=== PATIENT | female | born 1995 | race Caucasian/White ===

== ENCOUNTER → 2018-06-09 | Outpatient (CLI) | payer BC ==
--- NOTE | 2018-06-10 06:29 | MR ---
EXAMINATION TYPE: MR brain wo con DATE OF EXAM: 06/09/2018 COMPARISON: CT brain September 04, 2010. HISTORY: Migraines, hx of lt eye injury 2008, currently having pressure in lt eye TECHNIQUE: Multiplanar, multisequence imaging of the brain and brainstem is performed without IV cont rast. FINDINGS: Diffusion weighted images demonstrate no evidence of a recent infarct or other diffusion abnormality. There is no extraaxial fluid collection or significant white matter signal abnormality. The ventricu lar system and cisternal spaces are normal in size and appearance. The brain volume is age appropria te. Midline structures demonstrate normal morphology. The craniocervical junction appears within normal limits. Normal vascular flow voids are present. Near complete opacification of right maxillary sinus favors large mucous retention cyst or polyp. There is smaller inferior eccentric mucosal thickening o r polyp in the left maxillary sinus. Remainder paranasal sinuses are clear. The globes appear intact bilaterally. Nasal septum is deviated to left of midline. IMPRESSION: Large mucous retention cyst or polyps suspected occupying majority of right maxillary sin us.
== END ==
LOC: RADMRIMAIN 15:47
PROVIDERS: ATTEND Ophthalmology
DX: G43.009 Migraine without aura, not intractable, without status migrainosus (principal)
CPT/HCPCS: 70551

== ENCOUNTER → 2018-12-30 | Outpatient (CLI) | payer OTHER ==
--- NOTE | 2018-12-31 08:30 | XR ---
EXAMINATION TYPE: XR chest 2V DATE OF EXAM: 12/30/2018 COMPARISON: 03/08/2013 HISTORY: Chest pain TECHNIQUE: Frontal and lateral views of the chest are obtained. FINDINGS: There is no focal air space opacity. No evidence for pneumothorax. No pleural effusion. The cardiac silhouette size is within normal limits. The osseous structures are grossly intact. IMPRESSION: 1. No acute cardiopulmonary process.
== END | disposition home or self-care (01) ==
LOC: RADXRMAIN 17:58
PROVIDERS: ATTEND Pediatrics
DX: R06.02 Shortness of breath (principal)
CPT/HCPCS: 71046

== ENCOUNTER → 2019-01-19 | Outpatient (CLI) | payer OTHER ==
--- NOTE | 2019-01-26 09:54 | P.PN ---
Progress Note - Text Progress Note Date: 01/26/19 Report on the 48-hour monitor. This is a 23-year-old female being evaluated for cardiac arrhythmias. Baseline EKG showed sinus rhythm with average heart rate of 93. Minimal and 60 and maximum and 66. Occasional PVCs and APCs were noted. No sustained arrhythmias are detected. Final impression: #1. Sinus rhythm and sinus tachycardia #2 occasional APCs. #3 occasional PVCs. #4. No diary
--- NOTE | 2019-01-27 11:21 | HM ---
Report on the 48-hour monitor. This is a 23-year-old female being evaluated for cardiac arrhythmias. Baseline EKG showed sinus rhythm with average heart rate of 93. Minimal and 60 and maximum and 66. Occasional PVCs and APCs were noted. No sustained arrhythmias are detected. Final impression: #1. Sinus rhythm and sinus tachycardia #2 occasional APCs. #3 occasional PVCs. #4. No diary MTDD
== END | disposition home or self-care (01) ==
LOC: RADECHMAIN 11:54
PROVIDERS: ATTEND Pediatrics
DX: R00.2 Palpitations (principal)
CPT/HCPCS: 93225; 93226

== ENCOUNTER 2019-11-14 17:41 | Outpatient (CLI) | payer OTHER ==
[2019-11-14] MEDS: LACTATED RINGERS 1,000 ML IV SCH ×3 (18:32→21:15)
[2019-11-14 18:45] LABS: Basophils % (A) 0 %; Eosinophils % (A) 0 %; HCT 37.7 % (34.0-46.0); HGB 12.3 gm/dL (11.4-16.0); Lymphocytes # (A) 1.5 k/uL (1.0-4.8); Lymphocytes % (A) 10 %; MCH 29.1 pg (25.0-35.0); MCHC 32.6 g/dL (31.0-37.0); MCV 89.2 fL (80.0-100.0); Mean Platelet Volume 7.9; Monocytes # (A) 0.6 k/uL (0-1.0); Monocytes % (A) 4 %; Neutrophils # (A) 12.5 k/uL (1.3-7.7); Neutrophils % (A) 85 %; Platelet Count 266 k/uL (150-450); RBC 4.23 m/uL (3.80-5.40); RDW 13.4 % (11.5-15.5); WBC 14.7 k/uL (3.8-10.6)
[2019-11-14 18:58] LABS: ALT 15 U/L (4-34); AST 22 U/L (14-36); African American GFR (CKD) >90 (>60 ml/min/1.73 sqM); Albumin 3.4 g/dL (3.5-5.0); Alkaline Phosphatase 116 U/L (38-126); Anion Gap 8 mmol/L; Blood Urea Nitrogen 4 mg/dL (7-17); Calcium 9.3 mg/dL (8.4-10.2); Carbon Dioxide 21 mmol/L (22-30); Chloride 106 mmol/L (98-107); Glucose 90 mg/dL (74-99); Non-African American GFR(CKD) >90 (>60 ml/min/1.73 sqM); Potassium 3.8 mmol/L (3.5-5.1); Sodium 135 mmol/L (137-145); Total Bilirubin 0.3 mg/dL (0.2-1.3); Total Protein 6.2 g/dL (6.3-8.2)
[2019-11-14 20:10] LABS: Appearance,Urine Cloudy (Clear); Bacteria,Urine Rare /hpf; Bilirubin,Urine Negative (Negative); Blood,Urine Small (Negative); Color,Urine Light Yellow; Glucose,Urine (UA) Negative (Negative); Ketones,Urine 2+ (Negative); Leukocyte Esterase,Urine Large (Negative); Mucus,Urine Rare /hpf; Nitrite,Urine Positive (Negative); Protein,Urine Trace (Negative); RBC,Urine 5 /hpf (0-5); Specific Gravity,Urine 1.008 (1.001-1.035); Squamous Epithelial Cell,Urine 1 /hpf (0-4); Urobilinogen,Urine <2.0 mg/dL (<2.0); WBC,Urine >182 /hpf (0-5)
[2019-11-14] MEDS ORDERED: ONDANSETRON 4 MG/2 ML VIAL IVP STA (20:27)
[2019-11-15] MEDS: LACTATED RINGERS 1,000 ML IV SCH ×3 (00:55→00:57)
[2019-11-15 01:03] VITALS: BP 118/68; PULSE 106; RESP 16; TEMP 98.2
--- NOTE | 2019-11-15 06:09 | P.MSEPDOC ---
Presenting Problems - Arrival Data Date of Arrival on Unit: 11/14/19 Time of Arrival on Unit: 17:41 Mode of Transport: Ambulatory - Complaint OB-Reason for Admission/Chief Complaint: Pain Comment: right flank pain and foul smelling urine Medical History - Information : 1 Para: 0 Term: 0 : 0 Abortions: Spontaneous or Elective: 0 Number of Living Children: 0 - Gestational Age Gestational Age by KASIA (wks/days): 25 Weeks and 4 Days Review of Systems - Review of Systems Constitutional: No problems Breast: No problems ENT: No problems Cardiovascular: No problems Respiratory: No problems Gastrointestinal: No problems Genitourinary: No problems Musculoskeletal: No problems Neurological: No problems Skin: No problems Vital Signs - Temperature Temperature: 98.2 F Temperature Source: Oral - Pulse Right Brachial Pulse Rate: 106 Pulse Assessment Method: Automatic Cuff - Respirations Respiratory Rate: 16 Oxygen Delivery Method: Room Air O2 Sat by Pulse Oximetry: 98 - Blood Pressure Right Arm Blood Pressure: 118/68 Blood Pressure Mean: 84 Blood Pressure Source: Automatic Cuff Medical Screen Scoring (Pre) - Cervical Exam Dilation: Exam Deferred Effacement: Exam Deferred Membranes: Intact - Uterine Contractions Frequency: N/A Duration: N/A Intensity: N/A - Maternal Vital Signs Maternal Temperature: N/A Signs of Preeclampsia: N/A Maternal Respirations: N/A - Maternal Trauma Maternal Trauma: N/A - Assessment - Baby A Baseline FHR: 140 Heart Rate - NICHD Category: Category I (Normal) = 0 Position: N/A Station: N/A - Total Score - Baby A Total Score - Baby A: 0 - Total Score - Baby B Total Score - Baby B: 0 - Total Score - Baby C Total Score - Baby C: 0 - Level of Risk - Baby A Level of Risk - Baby A: Low (0-5) - Level of Risk - Baby B Level of Risk - Baby B: Low (0-5) - Level of Risk - Baby C Level of Risk - Baby C: Low (0-5) Physician Notification (Pre) - Physician Notified Physician Notified Date: 11/15/19 Physician Notified Time: 20:30 New Order Received: Yes (Ancef IVPB, Zofran, picker/puller script for keflex) - Notification Comment Comment: Meds infused, nausea improved, pt discharged with instructon to picker/puller prescription and take until gone. Disposition - Disposition OB Disposition: Triage, Discharge to home Discharge Date: 11/15/19 Discharge Time: 21:40 I agree with the RN Medical Screening Exam: Yes Risk & Benefit of care provided described in d/c instruction: Yes Diagnosis: URINARY TRACT INFECTION, SITE NOT SPECIFIED (Patient presented with complaints of right flank pain. Patient is afebrile. Laboratory evaluation was negative with the exception of a positive urinalysis consistent with urinary tract infection. Patient given one dose of IV Ancef and some IV fluids. Sent home on oral antibiotics follow up with return if worsening symptoms or fail to improve.)
== END 2019-11-14 21:40 | disposition home or self-care (01) ==
LOC: FBPOP 17:41
PROVIDERS: ATTEND Obstetrics & Gynecology
DX: O23.42 Unspecified infection of urinary tract in pregnancy, second trimester (principal); Z3A.25 25 weeks gestation of pregnancy
CPT/HCPCS: 80053; 85025; 81001; J0690; J2405; 96361; 96365; 96375; 99214

== ENCOUNTER 2020-02-22 17:00 | Inpatient (IN) | payer BC ==
--- NOTE | 2020-02-28 05:59 | P.HPOB ---
History of Present Illness H&P Date: 02/28/20 Chief Complaint: Postdates induction of labor This patient is a pleasant 24-year-old 1 para 0 female estimated date of confinement 02/24/2020 estimated gestational age 40-4/7 weeks who presents to labor and delivery for requested postdates induction of labor. Patient transferred care to [facility] at 14 weeks. care is complicated by a right choroid plexus cyst which did resolve and she's had a normal level III ultrasound. Patient does have a history of a positive group B strep urine culture, negative vaginal culture this . Review of Systems Genitourinary: Reports Menstruation: Reports amenorrhea Past Medical History Past Medical History: No Reported History History of Any Multi-Drug Resistant Organisms: None Reported Additional Past Surgical History / Comment(s): Sinus and Foot surgery Past Anesthesia/Blood Transfusion Reactions: No Reported Reaction Past Psychological History: No Psychological Hx Reported Smoking Status: Never smoker Past Alcohol Use History: None Reported Past Drug Use History: None Reported Medications and Allergies Home Medications Medication Instructions Recorded Confirmed Type Pnv No.95/Ferrous Fum/Folic AC 1 tab PO DAILY 11/14/19 11/14/19 History [ Multivitamin Tablet] Allergies Allergy/AdvReac Type Severity Reaction Status Date / Time codeine AdvReac Rapid Verified 11/14/19 17:48 Heart Rate cyclobenzaprine AdvReac Rapid Verified 11/14/19 17:48 [From Flexeril] Heart Rate Exam - OBG Physical Exam Abdomen: bowel sounds normal, no diffuse tenderness, no bruit present, no guarding noted, no hepatomegaly, no splenomegaly, no mass Vulva: both: normal Vagina: normal moisture, no discharge Cervix: no lesion (Cervix 1-2 cm dilated in the office.), no discharge Uterus: enlarged (Fundal height consistent with gestational age.) Results blood work shows she is O positive, rubella nonimmune, RPR is nonreac tive, hepatitis B is negative, HIV is nonreactive, group B strep was negative, Glucola was normal, most recent ultrasound showed 6 lbs. 9 oz. History of positive group B strep in urine 2013. Assessment and Plan Assessment: This is a pleasant 24-year-old 1 para 0 female 40-4/7 weeks gestation admitted to labor and delivery for postdates induction of labor. Patient is a history of positive group B strep in a urine culture in the past. Plan is antibiotic prophylaxis, Pitocin induction of labor per protocol, and anticipate vaginal delivery. (1) Postmaturity , 40-42 weeks gestation Status: Acute Code(s): O48.0 - POST-TERM SNOMED Code(s): 80087929418081 (2) Encounter for planned induction of labor Status: Acute Code(s): Z34.90 - ENCNTR FOR SUPRVSN OF NORMAL , UNSP, UNSP TRIMESTER SNOMED Code(s): 792668620 (3) Group B streptococcus urinary tract infection affecting Status: Acute Code(s): O23.40 - UNSP INFECTION OF URINARY TRACT IN , UNSP TRIMESTER; B95.1 - STREPTOCOCCUS, GROUP B, CAUSING DISEASES CLASSD ELSR SNOMED Code(s): 646631614
[2020-02-28] MEDS ORDERED: METHYLERGONOVINE 0.2 MG/ML 1 ML AMP IM PRN (06:17)
[2020-02-28] MEDS ORDERED: OXYTOCIN 10 UNIT/ML 1 ML VIAL IM PRN (06:17)
[2020-02-28] MEDS ORDERED: OXYTOCIN 30 UNITS/500 ML NS 30 UNIT in SALINE 1 500ML.BAG IV SCH (06:17)
[2020-02-28] MEDS ORDERED: TERBUTALINE 1 MG/ML VIAL SQ PRN (06:17)
[2020-02-28] MEDS ORDERED: AMPICILLIN 2,000 MG in SODIUM CHLORIDE 0.9% 100 ML IVPB STA (06:17)
[2020-02-28] MEDS ORDERED: CARBOPROST TROMETHAMINE 250 MCG/ML 1 ML AMP IM PRN (06:17)
[2020-02-28] MEDS ORDERED: LIDOCAINE 0.5% (PF) 5 MG/ML (50 ML SDV) SQ PRN (06:17)
[2020-02-28] MEDS: LACTATED RINGERS 1,000 ML IV SCH ×2 (06:22→12:00)
[2020-02-28 06:27] LABS: Basophils % (A) 0 %; Eosinophils # (A) 0.1 k/uL (0-0.7); Eosinophils % (A) 1 %; HCT 41.1 % (34.0-46.0); HGB 13.8 gm/dL (11.4-16.0); Lymphocytes # (A) 2.1 k/uL (1.0-4.8); Lymphocytes % (A) 25 %; MCH 28.9 pg (25.0-35.0); MCHC 33.5 g/dL (31.0-37.0); MCV 86.2 fL (80.0-100.0); Mean Platelet Volume 7.8; Monocytes # (A) 0.6 k/uL (0-1.0); Monocytes % (A) 7 %; Neutrophils # (A) 5.3 k/uL (1.3-7.7); Neutrophils % (A) 64 %; Platelet Count 258 k/uL (150-450); RBC 4.76 m/uL (3.80-5.40); RDW 13.3 % (11.5-15.5); WBC 8.2 k/uL (3.8-10.6)
[2020-02-28] MEDS: AMPICILLIN 1,000 MG in SODIUM CHLORIDE 0.9% 50 ML IVPB SCH ×3 (10:29→18:49)
[2020-02-28] MEDS ORDERED: BUTORPHANOL 1 MG/ML 1 ML VIAL IV PRN (10:39)
[2020-02-28] MEDS ORDERED: fentaNYL (PF) 50 MCG/ML 5 ML AMP ONE (12:08)
[2020-02-28] MEDS ORDERED: SODIUM CHLORIDE 0.9% 100 ML BAG ONE (12:08)
[2020-02-28] MEDS ORDERED: ROPIVACAINE 5MG/ML 20ML VIAL ONE (12:08)
--- NOTE | 2020-02-28 20:30 | P.PROBDLV ---
Vaginal Delivery Note - . Vaginal Delivery Note: Normal vaginal delivery viable female Apgars 9 and 9 delivery time is 2007 hours. Please see dictated H&P for intimate details of this patient's admission. Brief summary this is a pleasant 24-year-old 1 para 0 female 40-4/7 weeks gestation who is admitted to labor and delivery for postdates induction of labor. On admission patient is 1-2 cm dilated and has artificial rupture membranes for clear fluid. Labor is induced with Pitocin per protocol. She does get several doses of Stadol and then an epidural for pain control. Patient is multiple position changes and then after 5 cm does appear to go faster. Patient gets to complete pushes the head to the perineum. Posterior perineum is supported we have controlled delivery of the infant's head over the intact perineum. Infant's position was straight occiput anterior presentation. Mouth and nares are bulb suctioned. There is no evidence of a nuchal cord. With gentle downward traction we then have delivery the anterior and posterior shoulder and rest this 's body. This is a vigorous viable female infant Apgars are 9 and 9 delivery time was 2007 hrs. has spontaneous respirations and good cry and grossly appears normal. Infant is laid on the mother's abdomen. After the umbilical cord was done pulsating is doubly clamped and cut and appears to be trivascular. Placenta spontaneously delivered intact. Estimated blood loss is approximately 200 mL. Inspection of perineum shows no lacerations and no repair. All counts correct 3. There are no complications.
[2020-02-28] MEDS ORDERED: diphenhydrAMINE 50 MG/ML 1 ML VIAL IVP PRN (20:31)
[2020-02-28] MEDS ORDERED: ZOLPIDEM 5 MG TAB PO PRN (20:31)
[2020-02-28] MEDS ORDERED: BENZOCAINE/MENTHOL SPRAY 1 GM/SPRAY AEROSOL TOPICAL PRN (20:31)
[2020-02-28] MEDS ORDERED: diphenhydrAMINE 25 MG CAP PO PRN (20:31)
[2020-02-28] MEDS ORDERED: LANOLIN CREAM 5 GM TUBE TOPICAL PRN (20:31)
[2020-02-28] MEDS ORDERED: MEASLES-MUMPS-RUBELLA VACC/PF 12,500 UNIT/0.5 ML VIAL SQ ONE (20:31)
[2020-02-28] MEDS ORDERED: ACETAMINOPHEN TAB 325 MG TAB PO PRN (20:31)
[2020-02-28] MEDS ORDERED: OXYTOCIN 20 UNITS/1000 ML NS 1,000 ML IV SCH (20:31)
[2020-02-28] MEDS ORDERED: SIMETHICONE 80 MG CHEWABLE PO PRN (20:31)
[2020-02-28] MEDS ORDERED: HYDROCORTISONE 2.5% RECTAL CREAM 30 GM TUBE RECTAL PRN (20:31)
[2020-02-28] MEDS ORDERED: bisacodyL 10 MG SUPP RECTAL PRN (20:31)
[2020-02-28] MEDS: SENNOSIDES-DOCUSATE SODIUM 1 EACH TAB PO SCH (21:05)
[2020-02-29] MEDS: IBUPROFEN 600 MG TAB PO PRN ×3 (06:41→20:03)
--- NOTE | 2020-02-29 06:42 | P.PNOBGVD ---
Subjective - Subjective Patient reports: Reports appetite normal, Reports voiding normally, Reports pain well controlled, Reports ambulating normally : doing well Objective - Latest Vital Signs Latest vital signs: Vital Signs Temp Pulse Resp BP Pulse Ox 02/29/20 04:00 98.2 F 84 16 97/67 02/28/20 22:32 96 16 131/70 02/28/20 22:02 111 H 16 128/81 02/28/20 21:32 97 16 108/84 02/28/20 21:17 97.7 F 91 16 120/77 96 02/28/20 21:02 100 16 113/63 02/28/20 20:47 105 H 16 113/69 02/28/20 20:32 99.3 F 81 16 105/67 02/28/20 20:15 116 H Intake and Output 02/28/20 02/28/20 02/29/20 14:59 22:59 06:59 Output Total 600 200 Balance -600 -200 Output: Estimated Blood Loss 600 200 Other: # Voids 1 3 - Exam Lungs: bilateral: normal Chest: Normal S1, Normal S2 Extremities: Present: normal Abdomen: Present: normal appearance, soft Uterus: Present: normal, firm Assessment and Plan Assessment: day #1. Patient is resting without complaints. Vital signs are stable and she is afebrile. Uterus is firm nontender and she is having normal lochia. My impression is a normal course. Plan is to continue routine care discharge home tomorrow (1) Postmaturity , 40-42 weeks gestation Current Visit: No Status: Acute Code(s): O48.0 - POST-TERM SNOMED Code(s): 46035837604849 (2) Encounter for planned induction of labor Current Visit: No Status: Acute Code(s): Z34.90 - ENCNTR FOR SUPRVSN OF NORMAL , UNSP, UNSP TRIMESTER SNOMED Code(s): 285671091 (3) Group B streptococcus urinary tract infection affecting Current Visit: No Status: Acute Code(s): O23.40 - UNSP INFECTION OF URINARY TRACT IN , UNSP TRIMESTER; B95.1 - STREPTOCOCCUS, GROUP B, CAUSING DISEASES CLASSD [facility]SR SNOMED Code(s): 055114440
[2020-02-29] MEDS: SENNOSIDES-DOCUSATE SODIUM 1 EACH TAB PO SCH ×2 (07:55→20:04)
[2020-02-29] MEDS ORDERED: INFLUENZA VACCINE (6 MOS+) 60 MCG/0.5 ML SYRINGE IM ONE (11:25)
[2020-03-01] MEDS: IBUPROFEN 600 MG TAB PO PRN ×2 (02:10→08:55)
--- NOTE | 2020-03-01 05:44 | P.PNOBGVD ---
Subjective - Subjective Patient reports: Reports appetite normal, Reports voiding normally, Reports pain well controlled, Reports ambulating normally : doing well Objective - Latest Vital Signs Latest vital signs: Vital Signs Temp Pulse Resp BP 03/01/20 00:00 98.2 F 86 16 112/70 02/29/20 16:00 98 F 90 16 02/29/20 08:00 98.0 F 87 16 107/74 Intake and Output 02/29/20 02/29/20 03/01/20 14:59 22:59 06:59 Other: # Voids 1 1 1 - Exam Lungs: bilateral: normal Chest: Normal S1, Normal S2 Extremities: Present: normal Abdomen: Present: normal appearance, soft Uterus: Present: normal, firm Assessment and Plan Assessment: day #2. Patient is resting without complaints wishes to go home. Vital signs are stable and she is afebrile. Uterus is firm nontender and she is having normal lochia. My impression this is a normal course. Plan is to continue routine care discharge home later today (1) Postmaturity , 40-42 weeks gestation Current Visit: No Status: Acute Code(s): O48.0 - POST-TERM SNOMED Code(s): 71463465116495 (2) Encounter for planned induction of labor Current Visit: No Status: Acute Code(s): Z34.90 - ENCNTR FOR SUPRVSN OF NORMAL , UNSP, UNSP TRIMESTER SNOMED Code(s): 289311091 (3) Group B streptococcus urinary tract infection affecting Current Visit: No Status: Acute Code(s): O23.40 - UNSP INFECTION OF URINARY TRACT IN , UNSP TRIMESTER; B95.1 - STREPTOCOCCUS, GROUP B, CAUSING DISEASES CLASSD [facility] SNOMED Code(s): 332425255
--- NOTE | 2020-03-01 05:52 | P.DS ---
Providers Date of admission: 02/28/20 06:04 Expected date of discharge: 03/01/20 Attending physician: Fred Conner Primary care physician: Ra Crystal - Discharge Diagnosis(es) (1) Postmaturity , 40-42 weeks gestation Current Visit: No Status: Acute (2) Encounter for planned induction of labor Current Visit: No Status: Acute (3) Group B streptococcus urinary tract infection affecting Current Visit: No Status: Acute Hospital Course: Please see dictated H&P for intimate details of this patient's admission. In brief summary is a pleasant 24-year-old 1 para 0 female estimated gestat ional age 40-4/7 weeks who presents to labor and delivery for postdates induction of labor. Patient was on have a vaginal delivery viable female . Please see dictated delivery note. day #2 patient's felt be stable for discharge home follow up with me in 6 weeks Procedures: Induction of labor and normal vaginal delivery Patient Condition at Discharge: Good Plan - Discharge Summary New Discharge Prescriptions: New Ibuprofen [Motrin] 600 mg PO Q6HR PRN #40 tab PRN Reason: Mild Pain Or Fever >= 100.5 No Action Pnv No.95/Ferrous Fum/Folic AC [ Multivitamin Tablet] 1 tab PO DAILY Discharge Medication List Pnv No.95/Ferrous Fum/Folic AC [ Multivitamin Tablet] 1 tab PO DAILY 11/14/19 [History] Ibuprofen [Motrin] 600 mg PO Q6HR PRN #40 tab 03/01/20 [Rx] Follow up Appointment(s)/Referral(s): Fred Conner MD [STAFF PHYSICIAN] - 04/10/20 11:30 am Patient Instructions/Handouts: Vaginal Delivery (DC) Activity/Diet/Wound Care/Special Instructions: No intercourse or anything per vagina for 6 weeks. Please call if any fever, chills, excessive vaginal bleeding, and/or abdominal pain Discharge Disposition: HOME SELF-CARE
[2020-03-01] MEDS: SENNOSIDES-DOCUSATE SODIUM 1 EACH TAB PO SCH (08:52)
[2020-03-01 09:24] VITALS: BP 108/63; PULSE 84; RESP 18; TEMP 97.5
== END 2020-03-01 10:25 | disposition home or self-care (01) | DRG 807 ==
LOC: 4FBP 02-28 06:04
PROVIDERS: ADMIT Obstetrics & Gynecology; ATTEND Obstetrics & Gynecology
PROC: 10E0XZZ Delivery of Products of Conception, External Approach (ICD-10-PCS; principal; 2020-02-28)
PROC: 10907ZC Drainage of Amniotic Fluid, Therapeutic from Products of Conception, Via Natural or Artificial Opening (ICD-10-PCS; principal; 2020-02-28)
PROC: 3E0R3BZ Introduction of Anesthetic Agent into Spinal Canal, Percutaneous Approach (ICD-10-PCS; principal; 2020-02-28)
PROC: 3E033VJ Introduction of Other Hormone into Peripheral Vein, Percutaneous Approach (ICD-10-PCS; principal; 2020-02-28)
PROC: 00HU33Z Insertion of Infusion Device into Spinal Canal, Percutaneous Approach (ICD-10-PCS; principal; 2020-02-28)
DX: O48.0 Post-term pregnancy (principal); Z37.0 Single live birth; Z3A.40 40 weeks gestation of pregnancy; Z88.5 Allergy status to narcotic agent; Z88.8 Allergy status to other drugs, medicaments and biological substances
CPT/HCPCS: 85025; 86850; 86900; 86901; 90686; 90707

== ENCOUNTER 2021-09-12 06:01 | Inpatient (IN) | payer BC ==
--- NOTE | 2021-09-11 07:54 | P.HPOB ---
History of Present Illness H&P Date: 09/11/21 Chief Complaint: Requested induction of labor This patient is a pleasant 25-year-old 2 para 1 female estimated date of confinement 09/15/2021 estimated gestational age 39-4/7 weeks presents to labor and delivery for requested induction of labor. Patient's care has been uncomplicated. Patient's uncomfortable has a favorable cervix therefore going to proceed with delivery. Review of Systems Genitourinary: Reports Menstruation: Reports amenorrhea Past Medical History Past Medical History: No Reported History Additional Past Medical History / Comment(s): Patient's had a previous vaginal delivery baby girl. History of Any Multi-Drug Resistant Organisms: None Reported Additional Past Surgical History / Comment(s): Sinus and Foot surgery Past Anesthesia/Blood Transfusion Reactions: No Reported Reaction Past Psychological History: No Psychological Hx Reported Smoking Status: Never smoker Past Alcohol Use History: None Reported Past Drug Use History: None Reported - Past Family History Father Family Medical History: Blood Disorder Additional Family Medical History / Comment(s): factor 5 Medications and Allergies Home Medications Medication Instructions Recorded Confirmed Type Pnv No.95/Ferrous Fum/Folic AC 1 tab PO DAILY 11/14/19 02/28/20 History [ Multivitamin Tablet] Ibuprofen [Motrin] 600 mg PO Q6HR PRN #40 tab 03/01/20 Rx Allergies Allergy/AdvReac Type Severity Reaction Status Date / Time codeine AdvReac Rapid Verified 11/14/19 17:48 Heart Rate cyclobenzaprine AdvReac Rapid Verified 11/14/19 17:48 [From Flexeril] Heart Rate Exam - OBG Physical Exam Abdomen: bowel sounds normal, no diffuse tenderness, no bruit present, no guarding noted, no hepatomegaly, no splenomegaly, no mass Vulva: both: normal Vagina: normal moisture, no discharge Cervix: no lesion (Cervix in the office was 1-2 cm dilated and soft), no discharge Uterus: enlarged (Fundal height 38 cm) Results blood work shows she is O positive, rubella immune, RPR nonreactive, hepatitis B was negative, HIV is nonreactive, Glucola was normal, group B strep was negative however patient has a history in the past of a positive group B strep urine culture. Ultrasounds have shown normal anatomy and most recent ultrasound approximately 10 days ago shows growth at 7 lbs. 0 oz. at the 50th percentile Assessment and Plan Assessment: This is a pleasant 25-year-old 2 para 1 female 39-4/7 weeks gestation admitted to labor and delivery for requested induction of labor. Patient has a history of a positive group B strep urine culture. Plan is antibiotic prophylaxis, Pitocin induction per protocol, and anticipate vaginal delivery. (1) 39 weeks gestation of Status: Acute Code(s): Z3A.39 - 39 WEEKS GESTATION OF SNOMED Code(s): 81008572 (2) Encounter for planned induction of labor Status: Acute Code(s): Z34.90 - ENCNTR FOR SUPRVSN OF NORMAL , UNSP, UNSP TRIMESTER SNOMED Code(s): 878721710 (3) Group B streptococcus urinary tract infection affecting Status: Acute Code(s): O23.40 - UNSP INFECTION OF URINARY TRACT IN , UNSP TRIMESTER; B95.1 - STREPTOCOCCUS, GROUP B, CAUSING DISEASES CLASSD ELSWHR SNOMED Code(s): 651502759
[2021-09-12] MEDS ORDERED: LIDOCAINE 0.5% (PF) 5 MG/ML (50 ML SDV) SQ PRN (06:13)
[2021-09-12] MEDS ORDERED: TERBUTALINE 1 MG/ML VIAL SQ PRN (06:13)
[2021-09-12] MEDS ORDERED: METHYLERGONOVINE 0.2 MG/ML 1 ML AMP IM PRN (06:13)
[2021-09-12] MEDS ORDERED: OXYTOCIN 10 UNIT/ML 1 ML VIAL IM PRN (06:13)
[2021-09-12] MEDS ORDERED: CARBOPROST TROMETHAMINE 250 MCG/ML 1 ML AMP IM PRN (06:13)
[2021-09-12] MEDS ORDERED: OXYTOCIN 30 UNITS/500 ML NS 30 UNIT in SALINE 1 500ML.BAG IV SCH ×2 (06:13→15:05)
[2021-09-12] MEDS ORDERED: AMPICILLIN 2,000 MG in SODIUM CHLORIDE 0.9% 100 ML IVPB STA (06:16)
[2021-09-12] MEDS: LACTATED RINGERS 1,000 ML IV SCH ×2 (06:40→11:31)
[2021-09-12 06:49] LABS: Basophils % (A) 0 %; Eosinophils # (A) 0.1 k/uL (0-0.7); Eosinophils % (A) 1 %; HCT 39.2 % (34.0-46.0); Lymphocytes # (A) 2.1 k/uL (1.0-4.8); Lymphocytes % (A) 31 %; MCH 26.2 pg (25.0-35.0); MCHC 30.8 g/dL (31.0-37.0); MCV 85.3 fL (80.0-100.0); Mean Platelet Volume 8.9; Monocytes # (A) 0.5 k/uL (0-1.0); Monocytes % (A) 8 %; Neutrophils # (A) 3.9 k/uL (1.3-7.7); Neutrophils % (A) 58 %; Platelet Count 251 k/uL (150-450); RBC 4.59 m/uL (3.80-5.40); RDW 13.7 % (11.5-15.5); WBC 6.7 k/uL (3.8-10.6)
[2021-09-12] MEDS ORDERED: SODIUM CHLORIDE 0.9% 100 ML BAG ONE (09:07)
[2021-09-12] MEDS ORDERED: ROPIVACAINE 5MG/ML 20ML VIAL ONE (09:07)
[2021-09-12] MEDS ORDERED: fentaNYL (PF) 50 MCG/ML 5 ML AMP ONE (09:07)
[2021-09-12] MEDS: AMPICILLIN 1,000 MG in SODIUM CHLORIDE 0.9% 50 ML IVPB SCH ×2 (11:31→21:28)
[2021-09-12] MEDS ORDERED: LANOLIN CREAM 5 GM TUBE TOPICAL PRN (15:05)
[2021-09-12] MEDS ORDERED: BENZOCAINE/MENTHOL SPRAY 1 GM/SPRAY AEROSOL TOPICAL PRN (15:05)
[2021-09-12] MEDS ORDERED: SIMETHICONE 80 MG CHEWABLE PO PRN (15:05)
[2021-09-12] MEDS ORDERED: bisacodyL 10 MG SUPP RECTAL PRN (15:05)
[2021-09-12] MEDS ORDERED: diphenhydrAMINE 50 MG/ML 1 ML VIAL IVP PRN (15:05)
[2021-09-12] MEDS ORDERED: HYDROCORTISONE 2.5% RECTAL CREAM 30 GM TUBE RECTAL PRN (15:05)
[2021-09-12] MEDS ORDERED: ZOLPIDEM 5 MG TAB PO PRN (15:05)
[2021-09-12] MEDS ORDERED: diphenhydrAMINE 25 MG CAP PO PRN (15:05)
[2021-09-12] MEDS: IBUPROFEN 600 MG TAB PO PRN (16:38)
--- NOTE | 2021-09-12 18:47 | P.PROBDLV ---
Vaginal Delivery Note - . Vaginal Delivery Note: Normal vaginal delivery viable male infant Apgars 9 and 10 delivery time is 1349 hrs. Please see dictated H&P for intimate details of this patient's admission. In brief summary this is a pleasant 25-year-old 2 para 1 female 39-4/7 weeks gestation who is admitted to labor and delivery for requested induction of labor. On admission patient is 3 cm dilated and has attempted artificial rupture membranes for scant fluid. Labor is induced with Pitocin per protocol. Labor does have spontaneous draining clear fluid. Patient progresses and she gets an epidural for pain control. Of note this does take many attempts however does provide her with good relief. Patient gets to complete pushes for a very short period of time and pushes the head to the perineum. Patient pushes the head over the intact perineum. 's presentation straight occiput anterior presentation. Mouth and nares are bulb suctioned. Is no evidence of a nuchal cord. The infant then spontaneously delivers the shoulders and the rest of this 's body is without any maternal effort. This is a vigorous viable male Apgars are 9 and 10 delivery time was 1349 hrs. After delivery of the the umbilical cord is allowed to quit pulsating is then doubly clamped and cut. The is late on the mother's abdomen. The placenta spontaneously delivered intact inspection of the perineum shows second-degree laceration which repaired with 3-0 Vicryl usual fashion. Somewhat jagged on the left side however this is reapproximated with interrupted sutures as well and in good reapproximation is noted. All counts are correct 3. There are no complications. Infant and mother are stable delivery room.
[2021-09-12] MEDS: SENNOSIDES-DOCUSATE SODIUM 1 EACH TAB PO SCH ×2 (19:50→20:37)
[2021-09-12] MEDS: ACETAMINOPHEN TAB 325 MG TAB PO PRN (20:37)
[2021-09-13] MEDS: IBUPROFEN 600 MG TAB PO PRN ×2 (00:31→07:52)
[2021-09-13] MEDS: ACETAMINOPHEN TAB 325 MG TAB PO PRN (03:02)
--- NOTE | 2021-09-13 06:40 | P.PNOBGVD ---
Subjective - Subjective Patient reports: Reports appetite normal, Reports voiding normally, Reports pain well controlled, Reports ambulating normally : doing well Objective - Latest Vital Signs Latest vital signs: Vital Signs Temp Pulse Resp BP Pulse Ox 09/13/21 04:00 98.5 F 101 H 15 114/82 98 09/13/21 00:00 98.6 F 101 H 16 107/62 98 09/12/21 20:00 98.5 F 103 H 16 114/79 97 09/12/21 16:00 99 16 112/62 09/12/21 15:30 91 16 110/71 09/12/21 15:00 100 16 105/55 09/12/21 14:45 100 16 113/70 09/12/21 14:30 103 H 16 107/55 09/12/21 14:15 107 H 16 106/57 09/12/21 14:00 98.4 F 116 H 16 116/57 Intake and Output 09/12/21 09/12/21 09/13/21 14:59 22:59 06:59 Output Total 500 200 Balance -500 -200 Output: Urine 300 Estimated Blood Loss 200 Output, Quantitative 200 Blood Loss Other: # Voids 2 - Exam Lungs: bilateral: normal Chest: Normal S1, Normal S2 Extremities: Present: normal Abdomen: Present: normal appearance, soft Uterus: Present: normal, firm - Labs Labs: Abnormal Lab Results - Last 24 Hours (Table) 09/12/21 Range/Units 06:30 MCHC 30.8 L (31.0-37.0) g/dL Assessment and Plan Assessment: day #1. Patient is resting without complaints and wishes to go home. Vital signs are stable she is afebrile. Uterus is firm nontender and she is having normal lochia. My impression this is a normal course. Plan is to continue routine care discharge home later today (1) 39 weeks gestation of Current Visit: No Status: Acute Code(s): Z3A.39 - 39 WEEKS GESTATION OF SNOMED Code(s): 19659135 (2) Encounter for planned induction of labor Current Visit: No Status: Acute Code(s): Z34.90 - ENCNTR FOR SUPRVSN OF NORMAL , UNSP, UNSP TRIMESTER SNOMED Code(s): 491413611 (3) Group B streptococcus urinary tract infection affecting Current Visit: No Status: Acute Code(s): O23.40 - UNSP INFECTION OF URINARY TRACT IN , UNSP TRIMESTER; B95.1 - STREPTOCOCCUS, GROUP B, CAUSING DISEASES CLASSD [facility] SNOMED Code(s): 123925464
--- NOTE | 2021-09-13 06:42 | P.DS ---
Providers Date of admission: 09/12/21 06:01 Expected date of discharge: 09/13/21 Attending physician: Fred Conner Primary care physician: Ra Crystal - Discharge Diagnosis(es) (1) 39 weeks gestation of Current Visit: No Status: Acute (2) Encounter for planned induction of labor Current Visit: No Status: Acute (3) Group B streptococcus urinary tract infection affecting Current Visit: No Status: Acute Hospital Course: Please see dictated H&P for intimate details of this patient's admission. Brief summary is a pleasant 25-year-old 2 para 1 female 39-4/7 weeks who presents to labor and delivery for elective induction of labor. Patient is induction of labor quickly goes on to have a vaginal delivery viable male . Please see dictated delivery note. day #1 patient's felt be stable for discharge home follow up with me in 6 weeks. Procedures: Induction of labor and normal vaginal delivery Patient Condition at Discharge: Good Plan - Discharge Summary New Discharge Prescriptions: New Ibuprofen [Motrin] 600 mg PO Q6HR PRN #30 tab PRN Reason: Mild Pain (Scale 1 To 3) No Action Pnv No.95/Ferrous Fum/Folic AC [ Multivitamin Tablet] 1 tab PO DAILY Discharge Medication List Pnv No.95/Ferrous Fum/Folic AC [ Multivitamin Tablet] 1 tab PO DAILY 11/14/19 [History] Ibuprofen [Motrin] 600 mg PO Q6HR PRN #30 tab 09/13/21 [Rx] Follow up Appointment(s)/Referral(s): Fred Conner MD [STAFF PHYSICIAN] - 10/22/21 3:15 pm Patient Instructions/Handouts: Vaginal Delivery (DC) Activity/Diet/Wound Care/Special Instructions: No intercourse or anything per vagina for 6 weeks. Please call if any fever, chills, excessive vaginal bleeding, and/or abdominal pain Discharge Disposition: HOME SELF-CARE
[2021-09-13 06:45] LABS: Basophils % (A) 0 %; Eosinophils # (A) 0.1 k/uL (0-0.7); Eosinophils % (A) 1 %; HCT 35.9 % (34.0-46.0); HGB 11.3 gm/dL (11.4-16.0); Lymphocytes % (A) 23 %; MCH 27.1 pg (25.0-35.0); MCHC 31.5 g/dL (31.0-37.0); MCV 86.1 fL (80.0-100.0); Monocytes # (A) 0.5 k/uL (0-1.0); Monocytes % (A) 6 %; Neutrophils % (A) 69 %; Platelet Count 205 k/uL (150-450); RBC 4.17 m/uL (3.80-5.40); RDW 13.8 % (11.5-15.5); WBC 8.7 k/uL (3.8-10.6)
[2021-09-13] MEDS: SENNOSIDES-DOCUSATE SODIUM 1 EACH TAB PO SCH (07:52)
[2021-09-13 11:52] VITALS: BP 130/85; PULSE 94; RESP 18; TEMP 98.3
== END 2021-09-13 15:00 | disposition home or self-care (01) | DRG 806 ==
LOC: 4FBP 06:01
PROVIDERS: ADMIT Obstetrics & Gynecology; ATTEND Obstetrics & Gynecology
PROC: 10E0XZZ Delivery of Products of Conception, External Approach (ICD-10-PCS; principal; 2021-09-12)
PROC: 0KQM0ZZ Repair Perineum Muscle, Open Approach (ICD-10-PCS; 2021-09-12)
PROC: 3E033VJ Introduction of Other Hormone into Peripheral Vein, Percutaneous Approach (ICD-10-PCS; 2021-09-12)
DX: O98.82 Other maternal infectious and parasitic diseases complicating childbirth (principal); O23.43 Unspecified infection of urinary tract in pregnancy, third trimester; Z37.0 Single live birth; B95.1 Streptococcus, group B, as the cause of diseases classified elsewhere; O70.1 Second degree perineal laceration during delivery; Z3A.39 39 weeks gestation of pregnancy
CPT/HCPCS: 85025; 86850; 86900; 86901

== ENCOUNTER 2023-04-07 13:57 | Outpatient (CLI) | payer BC ==
--- NOTE | 2023-04-07 16:08 | P.MSEPDOC ---
Presenting Problems - Arrival Data Date of Arrival on Unit: 04/07/23 Time of Arrival on Unit: 13:57 Mode of Transport: Ambulatory - Complaint OB-Reason for Admission/Chief Complaint: Pain Comment: Pt reports to triage c/o abdominal pain across lower abdomen, worse on left side. Pt states she has been coughing for the last 8 days and has increasing sinus pressure and pain as well as yellow nasal discharge and yellow mucus when coughing. Medical History - Information : 3 Para: 2 Number of Living Children: 2 - Gestational Age Gestational Age by KASIA (wks/days): 22 Weeks and 3 Days Review of Systems - Review of Systems Constitutional: No problems Breast: No problems ENT: Cough, Nasal congestion Cardiovascular: No problems Respiratory: No problems Gastrointestinal: No problems Genitourinary: No problems Musculoskeletal: No problems Neurological: No problems Skin: No problems Vital Signs - Temperature Temperature: 97.9 F Temperature Source: Temporal Artery Scan - Pulse Right Sitting Brachial Pulse Rate: 112 Pulse Assessment Method: Automatic Cuff - Respirations Respiratory Rate: 18 Oxygen Delivery Method: Room Air O2 Sat by Pulse Oximetry: 97 - Blood Pressure Right Arm Sitting Blood Pressure: 121/73 Blood Pressure Mean: 89 Blood Pressure Source: Automatic Cuff Medical Screen Scoring - Assessment - Baby A Baseline FHR: 140 Physician Notification - Physician Notified Physician Notified Date: 04/07/23 Physician Notified Time: 14:25 Physician: Shaylee John Order Received: Yes - Notification Comment Comment: Spk c\Dr. John, advsd pt of Dr. Henriquez, arrives to triage c/o lower ab pain, tender on L side, above hip bone. FHT dopplered, 140s, ab soft and nontender in all areas except a 4cm spot on left side. Pt c\sinus pressure/pain, yellow mucusy nasal discharge and productive cough. Order rec'd for 4plex swab. 1550: 4plex negative; Pt discharged home c\instructions on safe OTC cough/cold medicine. To follow up as scheduled. Maternal Triage Index - Non-Urgent/Priority 4 Non-Urgent Priority 4: Yes Criteria Met for Priority 4: 22wk ab pain Disposition - Disposition OB Disposition: Discharge to home, Written follow up instructions reviewed Discharge Date: 04/07/23 Discharge Time: 16:00 I agree with the RN Medical Screening Exam: Yes Case reviewed; plan agreed upon as documented in EMR&OBIX.: Yes Diagnosis: RELATED CONDITIONS, UNSPECIFIED, SECOND TRIMESTER
[2023-04-07 16:11] VITALS: BP 121/73; PULSE 112; RESP 18; TEMP 97.9
== END 2023-04-07 15:50 | disposition home or self-care (01) ==
LOC: FBPOP 13:57
PROVIDERS: ATTEND Obstetrics & Gynecology
DX: O26.92 Pregnancy related conditions, unspecified, second trimester (principal); Z3A.22 22 weeks gestation of pregnancy; Z88.5 Allergy status to narcotic agent; Z88.2 Allergy status to sulfonamides
CPT/HCPCS: 87636; 99213

== ENCOUNTER 2023-06-30 15:48 | Outpatient (CLI) | payer BC ==
[2023-06-30 17:08] VITALS: BP 121/75; PULSE 116; RESP 16; TEMP 96.8
--- NOTE | 2023-08-11 08:07 | P.MSEPDOC ---
Presenting Problems - Arrival Data Date of Arrival on Unit: 06/30/23 Time of Arrival on Unit: 15:48 Mode of Transport: Ambulatory - Complaint OB-Reason for Admission/Chief Complaint: Pain, Dizziness Comment: headache and dizziness for the last week Medical History - Information : 3 Para: 2 Term: 2 : 0 Abortions: Spontaneous or Elective: 0 Number of Living Children: 2 - Gestational Age Gestational Age by KASIA (wks/days): 34 Weeks and 3 Days Review of Systems - Review of Systems Constitutional: No problems Breast: No problems ENT: No problems Cardiovascular: No problems Respiratory: No problems Gastrointestinal: No problems Genitourinary: No problems Musculoskeletal: No problems Neurological: No problems Skin: No problems Vital Signs - Temperature Temperature: 96.8 F Temperature Source: Temporal Artery Scan - Pulse Right Sitting Pulse Rate: 116 Pulse Assessment Method: Automatic Cuff - Respirations Respiratory Rate: 16 Oxygen Delivery Method: Room Air - Blood Pressure Right Arm Blood Pressure: 121/75 Blood Pressure Mean: 90 Blood Pressure Source: Automatic Cuff Medical Screen Scoring - Assessment - Baby A Baseline FHR: 125 Heart Rate - NICHD Category: Category I (Normal) NST: Reactive Physician Notification - Physician Notified Physician Notified Date: 06/30/23 Physician Notified Time: 16:32 Physician: Niurka Hernandez New Order Received: Yes (d/c home) Maternal Triage Index - Non-Urgent/Priority 4 Non-Urgent Priority 4: Yes Criteria Met for Priority 4: reactive nst, vitals wnl Disposition - Disposition OB Disposition: Discharge to home Discharge Date: 06/30/23 Discharge Time: 16:41 I agree with the RN Medical Screening Exam: Yes Case reviewed; plan agreed upon as documented in EMR&OBIX.: Yes Diagnosis: HEADACHE WITH ORTHOSTATIC COMPONENT, NEC
== END 2023-06-30 16:41 | disposition home or self-care (01) ==
LOC: FBPOP 15:48
PROVIDERS: ATTEND Obstetrics & Gynecology
DX: O26.893 Other specified pregnancy related conditions, third trimester (principal); R51.0 Headache with orthostatic component, not elsewhere classified; R42 Dizziness and giddiness; Z3A.34 34 weeks gestation of pregnancy; Z88.5 Allergy status to narcotic agent; Z88.8 Allergy status to other drugs, medicaments and biological substances
CPT/HCPCS: 59025; 99213

== ENCOUNTER → 2023-07-01 | Outpatient (CLI) | payer BC ==
--- NOTE | 2023-07-01 11:22 | US ---
EXAMINATION TYPE: US OB >= 14 wk fetus DATE OF EXAM: 07/01/2023 COMPARISON: None CLINICAL INDICATION: Female, 27 years old with history of O36.63X0 MATERNAL CARE FOR EXCESS NNAMDI WTH, TH; LGA TECHNIQUE: Transabdominal (TA) GESTATIONAL AGE / DATING Physician Established: (34 weeks/4 days) EDC: 08/08/23 Dates by LMP: LMP unknown Dates by First Scan: No previous this is first scan Dates by Current Scan: (35 weeks/3 days) EDC: 08/02/23 SURVEY IUP: Single PLACENTA: Fundal PREVIA: No Previa KELTON: 10.2 cm Normal CERVICAL LENGTH (transabdominal: norm > 3.0cm): 4.2 cm BIOMETRY PRESENTATION: Breech LIE: Longitudinal BPD: 8.8 cm 35 weeks / 4 days HC: 32.3 cm 36 weeks / 4 days AC: 31.6 cm 35 weeks / 4 days FL: 6.6 cm 33 weeks / 6 days ESTIMATED WEIGHT IN GRAMS: 2612 grams ESTIMATED WEIGHT IN LBS/OZ: 5 lbs. 12 oz. WEIGHT PERCENTAGE BASED ON ESTABLISHED DATES: 63% HC/AC: 1.02 Normal FL/AC: 21% Normal HEART RATE: 147 bpm RHYTHM: Normal IMPRESSION: Single live intrauterine gestation with ultrasound age 35 weeks 3 days.
== END | disposition home or self-care (01) ==
LOC: RADUSWWP 10:06
PROVIDERS: ATTEND Obstetrics & Gynecology
DX: O36.63X0 Maternal care for excessive fetal growth, third trimester, not applicable or unspecified (principal); O32.1XX0 Maternal care for breech presentation, not applicable or unspecified; Z3A.35 35 weeks gestation of pregnancy
CPT/HCPCS: 76805

== ENCOUNTER 2023-07-06 13:53 | Outpatient (CLI) | payer BC ==
[2023-07-06 17:58] VITALS: BP 128/79; PULSE 112; RESP 16; TEMP 97.4
--- NOTE | 2023-07-08 20:53 | P.MSEPDOC ---
Presenting Problems - Arrival Data Date of Arrival on Unit: 07/06/23 Time of Arrival on Unit: 14:10 Mode of Transport: Ambulatory - Complaint OB-Reason for Admission/Chief Complaint: Headache, Other Comment: dizziness. told to come to triage per pcp, iron level 6. Medical History - Information : 3 Para: 2 Term: 2 : 0 Abortions: Spontaneous or Elective: 0 Number of Living Children: 0 - Gestational Age Gestational Age by KASIA (wks/days): 35 Weeks and 1 Days - History Comment: was in last week for same symtoms. told to see pcp . pt states pcp did ekg, lab work flu and covid testing all ok. told to come here today. Review of Systems - Review of Systems Constitutional: No problems Breast: No problems ENT: No problems Cardiovascular: No problems Respiratory: No problems Gastrointestinal: No problems Genitourinary: No problems Musculoskeletal: No problems Neurological: No problems Skin: No problems Vital Signs - Temperature Temperature: 97.4 F Temperature Source: Temporal Artery Scan - Pulse Right Radial Pulse Rate: 112 Pulse Assessment Method: Automatic Cuff - Respirations Respiratory Rate: 16 Oxygen Delivery Method: Room Air O2 Sat by Pulse Oximetry: 98 - Blood Pressure Right Arm Blood Pressure: 128/79 Blood Pressure Mean: 95 Blood Pressure Source: Automatic Cuff Medical Screen Scoring - Cervical Exam Membranes: Intact - Uterine Contractions Intensity: Absent Resting: Soft to palpation - Assessment - Baby A Baseline FHR: 120 Heart Rate - NICHD Category: Category I (Normal) NST: Reactive Physician Notification - Physician Notified Physician Notified Date: 07/06/23 Physician Notified Time: 14:55 Physician: Malaika Marino Order Received: Yes (home with instructions and keep noxt weeks appt.. return if concerns or pro) Maternal Triage Index - Scheduled/Requesting Priority 5 Scheduled/Requesting Priority 5: Yes Criteria Met for Priority 5: from pcp office hemogloben 12.4. iron 6.0. starting hemo-12.7 beginning of preg. Disposition - Disposition OB Disposition: Physician follow up in office, Discharge to home, Written follow up instructions reviewed Discharge Date: 07/06/23 Discharge Time: 15:00 I agree with the RN Medical Screening Exam: Yes Case reviewed; plan agreed upon as documented in EMR&OBIX.: Yes Diagnosis: Dizziness in
== END 2023-07-06 15:00 | disposition home or self-care (01) ==
LOC: FBPOP 13:53
PROVIDERS: ATTEND Obstetrics & Gynecology
DX: O26.893 Other specified pregnancy related conditions, third trimester (principal); R51.9 Headache, unspecified; R42 Dizziness and giddiness; Z3A.35 35 weeks gestation of pregnancy; Z88.5 Allergy status to narcotic agent; Z88.1 Allergy status to other antibiotic agents
CPT/HCPCS: 59025; 99213

== ENCOUNTER 2023-08-11 03:17 | Inpatient (IN) | payer BC ==
[2023-08-11] MEDS ORDERED: miSOPROStoL 200 MCG TAB PO PRN (04:10)
[2023-08-11] MEDS ORDERED: LIDOCAINE 0.5% (PF) 5 MG/ML (50 ML SDV) SQ PRN (04:10)
[2023-08-11] MEDS ORDERED: TRANEXAMIC 1,000 MG/100ML-NACL 1,000 MG in EMPTY BAG 1 BAG IV PRN (04:10)
[2023-08-11] MEDS ORDERED: CARBOPROST TROMETHAMINE 250 MCG/ML 1 ML AMP IM PRN (04:10)
[2023-08-11] MEDS ORDERED: OXYTOCIN 10 UNIT/ML 1 ML VIAL IM PRN (04:10)
[2023-08-11] MEDS ORDERED: METHYLERGONOVINE 0.2 MG/ML 1 ML AMP IM PRN (04:10)
[2023-08-11] MEDS ORDERED: TERBUTALINE 1 MG/ML VIAL SQ PRN (04:10)
[2023-08-11 04:27] LABS: Basophils % (A) 0 %; Eosinophils % (A) 1 %; HCT 38.8 % (34.0-46.0); HGB 12.6 gm/dL (11.4-16.0); Lymphocytes # (A) 1.6 k/uL (1.0-4.8); Lymphocytes % (A) 22 %; MCH 28.2 pg (25.0-35.0); MCHC 32.4 g/dL (31.0-37.0); Mean Platelet Volume 9.4; Monocytes # (A) 0.4 k/uL (0-1.0); Monocytes % (A) 5 %; Neutrophils # (A) 5.2 k/uL (1.3-7.7); Neutrophils % (A) 71 %; Platelet Count 212 k/uL (150-450); RBC 4.46 m/uL (3.80-5.40); RDW 13.8 % (11.5-15.5); WBC 7.3 k/uL (3.8-10.6)
[2023-08-11] MEDS: LACTATED RINGERS 1,000 ML IV SCH (04:30)
[2023-08-11] MEDS: CITRIC ACID-SODIUM CITRATE 15 ML CUP PO ONE (04:50)
[2023-08-11] MEDS ORDERED: SODIUM CHLORIDE 0.9% 250 ML BAG ONE (05:02)
[2023-08-11] MEDS ORDERED: fentaNYL (PF) 50 MCG/ML 5 ML AMP ONE (05:02)
[2023-08-11] MEDS ORDERED: ROPIVACAINE 5 MG/ML 30 ML VIAL ONE (05:02)
--- NOTE | 2023-08-11 08:10 | P.HPOB ---
History of Present Illness H&P Date: 08/11/23 Chief Complaint: labor 27-year-old presents at 40 weeks and 3 days complaining of contractions. She is aydee every 2-4 minutes. heart tones 140 with moderate variability and reactive. Her cervix is 6-7 cm dilated, 80% effaced, -2 station. Review of Systems All systems: negative Constitutional: Denies chills, Denies fever Eyes: denies blurred vision, denies pain Ears, nose, mouth and throat: Denies headache, Denies sore throat Cardiovascular: Denies chest pain, Denies shortness of breath Respiratory: Denies cough Gastrointestinal: Denies abdominal pain, Denies diarrhea, Denies nausea, Denies vomiting Genitourinary: Denies dysuria, Denies hematuria Musculoskeletal: Denies myalgias Integumentary: Denies pruritus, Denies rash Neurological: Denies numbness, Denies weakness Psychiatric: Denies anxiety, Denies depression Endocrine: Denies fatigue, Denies weight change Past Medical History Past Medical History: No Reported History Additional Past Medical History / Comment(s): Patient's had a previous vaginal delivery baby girl. History of Any Multi-Drug Resistant Organisms: None Reported Past Surgical History: No Surgical Hx Reported Additional Past Surgical History / Comment(s): Sinus and Foot surgery Past Anesthesia/Blood Transfusion Reactions: No Reported Reaction Past Psychological History: No Psychological Hx Reported Smoking Status: Never smoker Past Alcohol Use History: None Reported Past Drug Use History: None Reported - Past Family History Father Family Medical History: Blood Disorder Additional Family Medical History / Comment(s): factor 5 Medications and Allergies Home Medications Medication Instructions Recorded Confirmed Type Pnv No.95/Ferrous Fum/Folic AC 1 tab PO DAILY 11/14/19 08/11/23 History [ Multivitamin Tablet] Allergies Allergy/AdvReac Type Severity Reaction Status Date / Time codeine AdvReac Rapid Verified 08/11/23 04:10 Heart Rate cyclobenzaprine AdvReac Rapid Verified 08/11/23 04:10 [From Flexeril] Heart Rate Exam Osteopathic Statement: *. No significant issues noted on an osteopathic structural exam other than those noted in the History and Physical/Consult. Vital Signs Temp Pulse Resp BP Pulse Ox 08/11/23 04:09 96.8 F L 94 16 128/82 95 Intake and Output 08/10/23 08/11/23 08/11/23 22:59 06:59 14:59 Other: # Voids 1 Weight 89.811 kg Heart: Regular rate and rhythm Lungs: Clear to auscultation bilaterally Abdomen: Soft, nontender Extremities: Negative Homans sign Results Result Diagrams: 08/11/23 04:13 Assessment and Plan (1) Normal labor Current Visit: Yes Status: Acute Code(s): O80 - ENCOUNTER FOR FULL-TERM UNCOMPLICATED DELIVERY; Z37.9 - OUTCOME OF DELIVERY, UNSPECIFIED SNOMED Code(s): 69277271 (2) 40 weeks gestation of Current Visit: Yes Status: Acute Code(s): Z3A.40 - 40 WEEKS GESTATION OF SNOMED Code(s): 37119054 Plan: 1. expectant management 2. Anticipate normal vaginal delivery
[2023-08-11] MEDS: OXYTOCIN 30 UNITS/500 ML NS 30 UNIT in SALINE 1 500ML.BAG IV SCH (09:57)
[2023-08-11] MEDS ORDERED: BENZOCAINE/MENTHOL SPRAY 1 GM/SPRAY AEROSOL TOPICAL PRN (10:17)
[2023-08-11] MEDS ORDERED: diphenhydrAMINE 50 MG/ML 1 ML VIAL IVP PRN ×2 (10:17)
[2023-08-11] MEDS ORDERED: LANOLIN CREAM 1 GM TUBE TOPICAL PRN (10:17)
[2023-08-11] MEDS ORDERED: ZOLPIDEM 5 MG TAB PO PRN (10:17)
[2023-08-11] MEDS ORDERED: SIMETHICONE 80 MG CHEWABLE PO PRN (10:17)
[2023-08-11] MEDS ORDERED: HYDROCORTISONE 2.5% RECTAL CREAM 30 GM TUBE RECTAL PRN (10:17)
[2023-08-11] MEDS ORDERED: diphenhydrAMINE 25 MG CAP PO PRN (10:17)
[2023-08-11] MEDS ORDERED: diphenhydrAMINE 50 MG CAP PO PRN (10:17)
[2023-08-11] MEDS: IBUPROFEN 600 MG TAB PO PRN (10:40)
[2023-08-11] MEDS: ACETAMINOPHEN TAB 325 MG TAB PO PRN (17:05)
[2023-08-11] MEDS: SENNOSIDES-DOCUSATE SODIUM 1 EACH TAB PO SCH (20:09)
--- NOTE | 2023-08-12 07:49 | P.PROBDLV ---
Vaginal Delivery Note - . Vaginal Delivery Note: 27-year-old presented at 40 weeks and 4 days in active labor. She did get an epidural and was comfortable. heart tones 135 with moderate variability and reactive. She is aydee every to 4 minutes. When she arrived she was 6-7 cm dilated. She progressed to 8 cm and amniotomy was performed at 7:54 AM and clear fluid noted. Her cervix was completely dilated 9:22 AM. She pushed, and delivered a viable male over intact perineum under epidural anesthesia at 9:54 AM. Head delivered OA, anterior shoulder delivered gentle downward guidance followed by posterior shoulder and rest of body. Nose and mouth bulb suctioned, cord clamped and cut, infant placed mother's abdomen. Apgars 9, 9, weight 7 lbs. 13 oz. Placenta delivered spontaneously, intact with three-vessel cord at 9:57 AM. Vagina, cervix, and perineum were inspected. No lacerations noted. Estimated blood loss 150 mL. Mother and baby in stable condition.
--- NOTE | 2023-08-12 07:53 | P.DS ---
Providers Date of admission: 08/11/23 04:07 Expected date of discharge: 08/12/23 Attending physician: Niurka Hernandez Primary care physician: Stated None - Discharge Diagnosis(es) (1) Normal labor Current Visit: Yes Status: Resolved (2) 40 weeks gestation of Current Visit: Yes Status: Resolved (3) Normal vaginal delivery Current Visit: Yes Status: Acute Hospital Course: Patient presented in active labor. She underwent a normal vaginal delivery. course was uneventful. She denies nausea, vomiting, chest pain, shortness of breath or calf pain. Patient will be discharged home day #1 in stable condition to follow-up with me in 6 weeks. Plan - Discharge Summary New Discharge Prescriptions: New Ibuprofen [Motrin] 600 mg PO Q6HR PRN #30 tab PRN Reason: Mild Pain (Scale 1 To 3) No Action Pnv No.95/Ferrous Fum/Folic AC [ Multivitamin Tablet] 1 tab PO DAILY Discharge Medication List Pnv No.95/Ferrous Fum/Folic AC [ Multivitamin Tablet] 1 tab PO DAILY 11/14/19 [History] Ibuprofen [Motrin] 600 mg PO Q6HR PRN #30 tab 08/12/23 [Rx] Follow up Appointment(s)/Referral(s): Niurka Hernandez DO [Doctor of Osteopathic Medicine] - 09/22/23 1:15 pm Discharge Disposition: HOME SELF-CARE
[2023-08-12 08:33] LABS: Basophils % (A) 0 %; Eosinophils # (A) 0.1 k/uL (0-0.7); Eosinophils % (A) 1 %; HCT 34.7 % (34.0-46.0); Lymphocytes # (A) 1.7 k/uL (1.0-4.8); Lymphocytes % (A) 21 %; MCH 28.1 pg (25.0-35.0); MCHC 31.7 g/dL (31.0-37.0); MCV 88.4 fL (80.0-100.0); Mean Platelet Volume 9.6; Monocytes # (A) 0.5 k/uL (0-1.0); Monocytes % (A) 6 %; Neutrophils # (A) 5.7 k/uL (1.3-7.7); Neutrophils % (A) 70 %; Platelet Count 169 k/uL (150-450); RBC 3.93 m/uL (3.80-5.40); RDW 14.3 % (11.5-15.5); WBC 8.2 k/uL (3.8-10.6)
[2023-08-12 10:43] VITALS: BP 121/83; PULSE 98; RESP 15; TEMP 98.3
== END 2023-08-12 15:00 | disposition home or self-care (01) | DRG 807 ==
LOC: FBPOP 03:17 → 4FBP 04:07
PROVIDERS: ADMIT Obstetrics & Gynecology; ATTEND Obstetrics & Gynecology
PROC: 10E0XZZ Delivery of Products of Conception, External Approach (ICD-10-PCS; principal; 2023-08-11)
DX: O48.0 Post-term pregnancy (principal); Z37.0 Single live birth; Z3A.40 40 weeks gestation of pregnancy; Z88.5 Allergy status to narcotic agent
CPT/HCPCS: 85025; 86850; 86900; 86901